=== PATIENT | male | born 1980 | race Caucasian/White ===

== ENCOUNTER 2020-06-04 13:00 | Outpatient (CLI) | payer BC, SELFPAY ==
--- NOTE | 2020-06-04 13:18 | CT_ITS ---
WS: [id number] CT ABDOMEN AND PELVIS NONCONTRAST HISTORY: URIC ACID UROLITHIASIS TECHNIQUE: Imaging performed through the abdomen and pelvis. Coronal and sagittal reformats are submi tted. All CT scans at [facility] use at least one of these dose optimization techniques: automated exposure control; mA and/or kV adjustment per patient size (includes targeted exams where d ose is matched to clinical indication); or iterative reconstruction. DLP: 2279.65 mGy.cm COMPARISON: 06/21/2018 Lower thorax: Lung bases are clear. Visualized heart is normal. No hiatal hernia. Liver: Markedly enlarged liver with diffuse low attenuation. Liver extends over a length of 27 cm. No bile duct dilatation. Diffuse hepatic steatosis. Gallbladder: Markedly contracted gallbladder. Pancreas: Normal size and attenuation. Normal pancreatic duct. No pancreatitis or mass. Spleen: 15.8 cm in length. Similar to the prior study with mild enlargement. Adrenal glands: Normal. No mass. Right kidney: Normal size kidney with no mass or hydronephrosis. Left kidney: Normal size kidney with no mass or hydronephrosis. Aorta: Normal abdominal aorta, no aneurysm or atherosclerosis. No free fluid, intraperitoneal air or significant lymphadenopathy. GI tract: No GI tract obstruction. The appendix is normal. There are a few scattered diverticula in t he sigmoid colon but no acute diverticulitis. Medicinal tablets in the distal colon. Abdominal wall: Small umbilical hernia contains fat only. Pelvis: Normally distended bladder. Marked calcifications in the vas deferens. Osseous structures: Mild narrowing of the hip joints bilaterally. CT/CT kidney stone [id number] IMPRESSION: 1. No renal calcifications or ureteral calcifications or obstruction. 2. Severe hepatomegaly and hepatic steatosis. There is also mild enlargement o f the spleen. Favor portal venous hypertension. 3. No ascites.
== END 2020-06-04 13:01 | disposition home or self-care (01) ==
PROVIDERS: PCP Urology; Visit Provider Urology
DX: N20.9 Urinary calculus, unspecified (principal); R16.0 Hepatomegaly, not elsewhere classified; K76.0 Fatty (change of) liver, not elsewhere classified; R16.1 Splenomegaly, not elsewhere classified
CPT/HCPCS: 74176; 81001